=== PATIENT | female | born 1950 | race Two or more races ===

== ENCOUNTER → 2017-09-13 | Outpatient (CLI) | payer BC ==
--- NOTE | 2017-09-13 13:55 | RADRPT ---
PROCEDURE: XR Left Shoulder. CLINICAL INDICATION: Left shoulder pain. TECHNIQUE: Three views. Frontal internal rotation, frontal external rotation, and oblique. COMPARISON: No prior study is available for comparison. FINDINGS: There is no fracture or dislocation. The soft tissues are normal. Articular surfaces are intact. There is no lytic or blastic lesion. There is no radiopaque foreign body. IMPRESSION: 1. Normal images of the left shoulder. RPTAT: QQ .Danyel Macias MD, MD Date Time Electronically viewed and signed by .Danyel Macias MD, on 09/13/2017 13:54 .R/
--- NOTE | 2017-09-14 03:28 | HKNOTE ---
DATE OF SERVICE: 09/13/2017 CHIEF COMPLAINT: Left shoulder pain. HISTORY OF PRESENT ILLNESS: This is a 67-year-old female complaining of left shoulder pain. The pa in has been worsening over the last year. She has difficulties performing her activities of daily l iving including lifting her arm. She is right hand dominant. She denies any history of trauma. Sh mono had previous symptoms of the right shoulder with subsequent right shoulder rotator cuff repair per formed in 2007. In regards to her left shoulder, she states that the pain is constant. It radiates to the left forearm. There is no numbness or tingling. The pain wakes her up from sleep. There a re no alleviating factors. She denies any neck pain. PHYSICAL EXAMINATION: GENERAL: The patient is comfortable, in no acute distress. LEFT SHOULDER: There is no deformity or atrophy noted. She is tender over the anterior deltoid. S he is nontender over the AC joints and the posterior scapula. She has 150 degrees of forward flexio n, 20 degrees of extension, 160 degrees of abduction, 30 degrees of adduction, 70 degrees internal r otation, 70 degrees of external rotation, 5/5 strength of axillary nerve, median, ulnar and musculoc utaneous nerve, positive Chan test, positive Neer's test, positive belly press test, negative lif t-off test. IMAGING: X-rays, left shoulder: Two views of the left shoulder taken in the office demonstrate AC joint osteoarthritis. There are no fracture or dislocations. MRI left shoulder: There is a full thickness tear of the supraspinatus tendon with retraction. The re is also a high-grade partial thickness articular-sided tear of the subscapularis tendon. There i s atrophy of the supraspinatus and subscapularis. There is a tear of the long head of the biceps te ndon. There is moderate AC joint osteoarthritis. IMPRESSION: A 67-year-old female with a left rotator cuff tear. PLAN: I discussed treatment options with the patient. She has had previous physical therapy. We w ill request authorization for left shoulder corticosteroid injection. I also discussed possible nee d for left shoulder arthroscopic rotator cuff repair. She will follow up following her authorizatio n for an injection. Dictated By: NORA AGUILAR/REMBERTO Conf#: [id number] [facility]#: [id number]
== END | disposition home or self-care (01) ==
LOC: HKI 13:37
PROVIDERS: ATTEND Orthopaedic Surgery Adult Reconstructive Orthopaedic Surgery
DX: M75.102 Unspecified rotator cuff tear or rupture of left shoulder, not specified as traumatic (principal)
CPT/HCPCS: G0463

== ENCOUNTER → 2017-10-08 | Outpatient (CLI) | payer BC ==
--- NOTE | 2017-10-08 11:58 | HKNOTE ---
DATE OF SERVICE: 10/08/2017 CHIEF COMPLAINT: Left shoulder pain. HISTORY OF PRESENT ILLNESS: This is a 67-year-old female with a left shoulder rotator cuff tear. S he is complaining of pain in the left shoulder. The pain is constant. It wakes her up from sleep. There are no alleviating factors. She has been taking ibuprofen without pain relief. She is here today for an injection Left shoulder 170 degrees of abduction, 170 degrees of forward flexion, 90 degrees external rotation 90 degrees, internal rotation. Positive Neer's, positive Chan, negative belly press, negative l iftoff. IMAGING: MRI left shoulder: There is a full-thickness tear of the supraspinatus. There is a parti al thickness tear of the subscapularis. The infraspinatus and teres minor are intact. IMPRESSION: This is a 67-year-old female with a left shoulder rotator cuff tear. PLAN: After obtaining consent, the left shoulder was prepped and draped in the usual sterile fashio n. An injection consisting of 1 mL of Depo-Medrol along with 3 mL of 1% lidocaine was injected unde r sterile technique. There were no complications. She tolerated the procedure well. She was advis ed to ice the left shoulder. She can take ibuprofen for pain control. She will follow up in 6 week s. Dictated By: NORA AGUILAR/REMBERTO Conf#: [id number] [facility]#: [id number]
== END | disposition home or self-care (01) ==
LOC: HKI 10:17
PROVIDERS: ATTEND Orthopaedic Surgery Adult Reconstructive Orthopaedic Surgery
DX: M75.102 Unspecified rotator cuff tear or rupture of left shoulder, not specified as traumatic (principal)
CPT/HCPCS: 20610; Z7500; Z7610; G0463